=== PATIENT | male | born 1970 | race Caucasian/White ===

== ENCOUNTER 2020-07-05 11:34 | Emergency (ER) | payer OTHER, SELFPAY ==
--- NOTE | ~2020-07-05 | XR_ITS ---
EXAMINATION: XR HAND, LEFT CLINICAL INFORMATION: Dogbite. Swelling. Pain. COMPARISON: None TECHNIQUE: PA, lateral, and oblique views of the left hand. FINDINGS: There is no fracture or dislocation. Alignment is anatomic. Joint spaces are maintained. There is dorsal soft tissue swelling of the hand with no radiopaque foreign body. XR/XR hand LT min 3V IMPRESSION: Dorsal soft tissue swelling. No radiopaque foreign body. No osseous abnormality.
[2020-07-05 12:19] VITALS: BP 00/0; PULSE 86; RESP 18; TEMP 36.8; O2SAT 96; BMI 25.3
[2020-07-05 12:59] LABS: MANUAL DIFF FLAG NO
[2020-07-05 13:04] LABS: Basophils Percent Auto 0.3 % (0-2); Eosinophils Absolute Auto 0.1 X10*3/uL (0.0-0.4); Eosinophils Percent Auto 1.5 % (0-4); Hematocrit 40.3 % (42-52); Hemoglobin 13.6 g/dl (14.0-18.0); Imm Gran Abs Auto 0.03 X10*3/uL (0.00-0.03); Imm Gran Pct Auto 0.3 % (0.0-0.4); Lymphocytes Absolute Auto 2.1 X10*3/uL (1.2-4.9); Lymphocytes Percent Auto 23.5 % (20-40); Mean Corpuscular HGB Conc 33.7 g/dl (31.0-36.0); Mean Corpuscular Volume 94.8 fL (80-98); Mean Platelet Volume 10.3 fL (9.4-12.4); Monocytes Absolute Auto 0.7 X10*3/uL (0.1-1.2); Monocytes Percent Auto 8.2 % (2-11); Neutrophils Absolute Auto 5.9 X10*3/uL (2.0-8.3); Neutrophils Percent Auto 66.2 % (45-73); Platelet Count 211 X10*3/uL (160-400); Red Blood Count 4.25 X10*6/uL (4.60-5.80); Red Cell Distribution Width 11.9 % (11.0-16.0); White Blood Count 8.9 X10*3/uL (4.8-10.8)
[2020-07-05 13:43] LABS: Anion Gap 11 (12-20); Blood Urea Nitrogen 11 mg/dL (9-16); Calcium 8.6 mg/dL (8.4-10.2); Carbon Dioxide 27 mmol/L (22-29); Chloride 108 mmol/L (96-108); Creatinine Clr Calc Pharmacy 111.8; Estimated Glomerular Filt Rate > 60; Glucose Random 96 mg/dL (60-115); Potassium 4.2 mmol/L (3.3-5.1); Sodium 142 mmol/L (135-145)
--- NOTE | 2020-07-05 16:32 | ED.EXTPRO ---
HPI - Extremity Problem General Chief complaint: Extremity Injury, Upper Stated complaint: HAND INFECTION Time Seen by Provider: 07/05/20 16:32 Source: patient Mode of arrival: ambulatory Limitations: no limitations History of Present Illness HPI Narrative: Patient no significant past medical history was patting a stray dog 10 days ago who bit him on his left dorsum of the hand patient unable to dress the doc last few days noticed swelling and redness of the dorsum of the hand patient denies any fever no altered sensorium patient never had rabies shots in the past up to date in tetanus shot Related Data Previous Rx's Medication Instructions Recorded amoxicillin-pot clavulanate 1 tab PO BID #20 tab 07/05/20 [Augmentin] ibuprofen 600 mg PO Q6H PRN #20 tab 07/05/20 Allergies Allergy/AdvReac Type Severity Reaction Status Date / Time No Known Allergies Allergy Verified 07/05/20 12:18 Review of Systems Review of Systems: Constitutional : No Weight loss, No Fever, No Chills ENT/Mouth : No sore throat, No Rhinorrhea Eyes: No Eye Pain, No Swelling Cardiovascular : No Chest Pain, no palpitations Respiratory : No Cough, No Sputum, no shortness of breath Gastrointestinal : no Nausea, No Vomiting, No Diarrhea, No abdominal Pain, no black stools Genitourinary : No Dysuria, No Urinary Frequency Musculoskeletal right dorsum of the hand swelling and pain, No Myalgias, No Joint Swelling Skin : No Skin Lesions, No rash Neuro : No Weakness, No Numbness, No Dizziness, No Headache Psych : No Anxiety/Panic, No Depression Heme/Lymph: No Bruising, No Lymphadenopathy Endocrine : No Polyuria, No Polydipsia All other systems reviewed and are negative [facility] Past Medical History Medical History Atrial septal defect Social History Social History Advance Directives: No Advance Directives Information Provided: No Physical Exam Vital Signs: Vital Signs: Last Vital Signs Temp 98.2 F 07/05/20 12:19 Pulse 86 07/05/20 12:19 Resp 18 07/05/20 12:19 BP 00/0 L 07/05/20 12:19 Pulse Ox 96 07/05/20 12:19 Body Mass Index 25.3 Const: General: comfortable and no acute distress Orientation/consciousness: patient oriented x3 HENMT: Head: Yes normocephalic Eyes: General: appearance normal, both eyes and all related structures Neck: Neck: Yes normal visual inspection Resp: Effort & Inspection: normal respiratory effort Auscultation: clear to auscultation bilaterally Cardio: Jugular venous distension: no JVD Rate: regular rate Rhythm: regular rhythm Heart sounds: S1 normal heart sound present and S2 normal heart sound present Peripheral pulses: Peripheral pulses 2+ throughout GI: Inspection: Yes normal to inspection Palpation (GI): Soft to palpation Auscultation: normal bowel sounds Skin: Other: Diffuse swelling with scab on dorsum of the left hand Neuro: General: patient oriented x3 and no focal motor deficits Extrem: Hand/finger images: 1. Diffuse erythematous swelling of dorsum of the left hand good range of passive and active finger movement although painful neurovascular intact MDM - Extremity (Nontraumatic) MDM Narrative Medical decision making narrative: Patient dog bite about 10 days ago from a stray dog which cannot be traced, will give him human rabies immunoglobulin and rabies vaccine along with IV Zosyn for cellulitis on the dorsum of the hand. Patient advised to report to the ER if worsening of the swelling redness or pain , no signs of tenosynovitis at this time Lab Data Result diagrams: 07/05/20 12:52 07/05/20 12:52 Labs: Lab Results 07/05/20 07/05/20 Range/Units 12:52 12:52 WBC 8.9 (4.8-10.8) X10*3/uL RBC 4.25 L (4.60-5.80) X10*6/uL Hgb 13.6 L (14.0-18.0) g/dl Hct 40.3 L (42-52) % MCV 94.8 (80-98) fL MCH 32.0 (27.0-33.0) pg MCHC 33.7 (31.0-36.0) g/dl RDW 11.9 (11.0-16.0) % Plt Count 211 (160-400) X10*3/uL MPV 10.3 (9.4-12.4) fL Immature Gran % (Auto) 0.3 (0.0-0.4) % Neut % (Auto) 66.2 (45-73) % Lymph % (Auto) 23.5 (20-40) % Heard % (Auto) 8.2 (2-11) % Eos % (Auto) 1.5 (0-4) % Baso % (Auto) 0.3 (0-2) % Lymph # (Auto) 2.1 (1.2-4.9) X10*3/uL Heard # (Auto) 0.7 (0.1-1.2) X10*3/uL Eos # (Auto) 0.1 (0.0-0.4) X10*3/uL Baso # (Auto) 0.0 (0.0-0.2) X10*3/uL Abs Immat Gran (auto) 0.03 (0.00-0.03) X10*3/uL Absolute Neuts (auto) 5.9 (2.0-8.3) X10*3/uL Absolute Nucleated RBC 0.000 (0.0-0.012) X10*3/uL Nucleated RBC % (auto) 0.0 (0.0-0.2) /100WBC Sodium 142 (135-145) mmol/L Potassium 4.2 (3.3-5.1) mmol/L Chloride 108 (96-108) mmol/L Carbon Dioxide 27 (22-29) mmol/L Anion Gap 11 L (12-20) BUN 11 (9-16) mg/dL Creatinine 1.07 (0.5-1.4) mg/dL Estim Creat Clear Calc 111.8 Estimated GFR > 60 Random Glucose 96 (60-115) mg/dL Calcium 8.6 (8.4-10.2) mg/dL Discharge Plan Discharge Clinical Impression: Dog bite of left hand with infection Qualifiers: Encounter type: initial encounter Qualified Code(s): S61.452A - Open bite of left hand, initial encounter Patient Disposition: Home, Self-Care Instructions: Animal Bite (ED), Cellulitis (ED) Additional Instructions: Take antibiotic as prescribed. Pain medication as advised. Report to the ER if increased swelling of the left hand/numbness or weakness/high fever. Get rabies vaccination per protocol as advised Keep left hand elevated Prescriptions: New amoxicillin-pot clavulanate [Augmentin] 875-125 mg tablet 1 tab PO BID Qty: 20 RF: 0 ibuprofen 600 mg tablet 600 mg PO Q6H PRN (Reason: pain) Qty: 20 RF: 0 Interventions: ED Discharge Assessment Last Done: 07/05/20 19:29 Discharge Date/Time: 07/05/20 19:30
[2020-07-05] MEDS: Piperacillin Sodium/Tazobactam 3.375 GM in 0.9 % Sodium Chloride 50 ML IV (17:22)
[2020-07-05] MEDS: Rabies Vaccine (PCEC)/PF 1 ML VIAL IM (17:32)
[2020-07-05] MEDS: Rabies Immune Globulin/PF 300 UNIT/ML VIAL 200 UNIT IM (18:14)
[2020-07-05] MEDS: Rabies Immune Globulin/PF 900 UNIT/3 ML VIAL 1800 UNIT IM (18:15)
== END 2020-07-05 19:30 | disposition home or self-care (01) ==
PROVIDERS: Emergency Provider Internal Medicine; PCP Internal Medicine
DX: S61.452A Open bite of left hand, initial encounter (principal); W54.0XXA Bitten by dog, initial encounter; Y93.9 Activity, unspecified; Y92.414 Local residential or business street as the place of occurrence of the external cause; Y99.9 Unspecified external cause status
CPT/HCPCS: 36415; 73130; 80048; 85025; 90375; 90471; 90472; 90675; 96365; 99283; 99284; J2543

== ENCOUNTER 2020-07-08 14:06 | Outpatient (REF) | payer OTHER, SELFPAY | END 2020-07-08 14:07 | disposition home or self-care (01) | LOC: HO.MDS 14:06 | PROVIDERS: PCP Internal Medicine; Visit Provider Internal Medicine | DX: Z29.14 Encounter for prophylactic rabies immune globulin (principal); S60.571D Other superficial bite of hand of right hand, subsequent encounter; L08.9 Local infection of the skin and subcutaneous tissue, unspecified; W54.0XXD Bitten by dog, subsequent encounter; Z20.3 Contact with and (suspected) exposure to rabies | CPT/HCPCS: 90471; 90675 ==

== ENCOUNTER 2020-07-14 12:21 | Outpatient (REF) | payer OTHER, SELFPAY | END 2020-07-14 12:22 | disposition home or self-care (01) | LOC: HO.MDS 12:21 | PROVIDERS: Visit Provider Internal Medicine | DX: Z29.14 Encounter for prophylactic rabies immune globulin (principal); S61.452D Open bite of left hand, subsequent encounter; L08.9 Local infection of the skin and subcutaneous tissue, unspecified; W54.0XXD Bitten by dog, subsequent encounter; Z20.3 Contact with and (suspected) exposure to rabies | CPT/HCPCS: 90471; 90675 ==

== ENCOUNTER 2020-07-20 13:48 | Outpatient (REF) | payer OTHER, SELFPAY | END 2020-07-20 13:49 | disposition home or self-care (01) | LOC: HO.MDS 13:48 | PROVIDERS: PCP Internal Medicine; Visit Provider Internal Medicine | DX: Z29.14 Encounter for prophylactic rabies immune globulin (principal); S60.572D Other superficial bite of hand of left hand, subsequent encounter; L08.9 Local infection of the skin and subcutaneous tissue, unspecified; W54.0XXD Bitten by dog, subsequent encounter; Z20.3 Contact with and (suspected) exposure to rabies | CPT/HCPCS: 90471; 90675 ==